=== PATIENT | female | born 1945 | race Caucasian/White ===

== ENCOUNTER → 2018-12-03 | Day surgery (SDC) | payer MEDICARE ==
[2018-11-25 11:03] LABS: BASOPHILS # (AUTO) 0.1 (0.0-0.1); BASOPHILS % 1.2 % (0.0-1.0); EOSINOPHILS # (AUTO) 0.2 (0.0-0.4); EOSINOPHILS % 3.7 % (0.0-6.0); HEMATOCRIT 41.2 % (34.2-44.1); HEMOGLOBIN 13.9 g/dL (12.0-16.0); LYMPHOCYTES # (AUTO) 1.5 (1.0-3.2); LYMPHOCYTES % 29.3 % (18.0-39.1); MEAN CORPUSCULAR HEMOGLOBIN 29.1 pg (28-32); MEAN CORPUSCULAR HGB CONC 33.7 g/dL (31-35); MEAN CORPUSCULAR VOLUME 86.2 fL (81-99); MONOCYTES # (AUTO) 0.5 (0.2-0.8); MONOCYTES % 9.2 % (4.4-11.3); NEUTROPHILS # (AUTO) 2.9 (2.1-6.9); NEUTROPHILS % 56.4 % (38.7-80.0); PLATELET COUNT 167 x10e3/uL (140-360); RED BLOOD COUNT 4.78 x10e6/uL (3.6-5.1); RED CELL DISTRIBUTION WIDTH 12.6 % (11.7-14.4)
[2018-11-25 11:19] LABS: ANION GAP 16.2 mmol/L (8-16); BLOOD UREA NITROGEN 11 mg/dL (7-26); BUN/CREATININE RATIO 14 (6-25); CALCIUM 9.6 mg/dL (8.4-10.2); CARBON DIOXIDE 24 mmol/L (22-29); CHLORIDE 99 mmol/L (98-107); EST GLOMERULAR FILTRATION RATE > 60 ML/MIN (60-); GLUCOSE 230 mg/dL (74-118); POTASSIUM 4.2 mmol/L (3.5-5.1); SODIUM 135 mmol/L (136-145)
--- NOTE | 2018-11-25 12:09 | Diagnostic Imaging Report ---
Exam: Chest radiograph Clinical History: Preoperative clearance Findings: The cardiomediastinal silhouette and lungs are normal. The regional skeleton and soft tissue are unremarkable. There is no evidence of pleural effusion or pneumothorax. Impression: No radiographic evidence of acute cardiopulmonary disease. Signed by: Dr. Michel Pierre MD on 11/25/2018 12:05 PM
[~2018-12-03] MED LIST: BUPIVACAINE HCL 0.5% 10ML MPF VIAL INJ ONE; CEFAZOLIN SOD 1 GM/NS 50ML 50 ML IV ONE; DEXAMETHASONE SOD PHOS INJ 4 MG/ML VIAL ONE; EFFEXOR XR 3737.5 MG PO; FENTANYL CITRATE/PF 100MCG/2 ML INJ ONE; LEVOTHYROXINE75 MCG PO; LIDOCAINE HCL 2% LOCAL INJ 5 ML SDV VIAL INJ ONE; LOSARTAN POTASS25 MG PO; MUPIROCIN 2% OINT 22 GM TUBE ONE; OMEPRAZOLE40 MG PO; ONDANSETRON HCL INJ 2MG/ML 2ML 2 MG/ML VIAL ONE; OZEMPIC SQ; PRAVASTATIN SOD20 MG PO; PROPOFOL IV EMULSION 10 MG/ML 20 ML VIAL ONE; SEVOFLURANE INHAL SOLN 250 ML PEN BTL ONE; TIZANIDINE HCL4 MG PO; TRAZODONE HCL50 MG PO; UNISOM SLEEP AI25 MG PO
--- OUTSIDE RECORDS SUMMARY | 2018-12-03 05:13 | XMS REPORT | Summary of Care ---
Author Organization Unknown Address Unknown Phone Unavailable Encounter HQ Encntr_timothy([facility]) [id number] Date(s): 05/13/14 - 05/13/14 [facility] Outpatient Imaging - [address] [address] [place] Discharge Disposition: Home Physician Attending: Bradley Lambert MD Reason for Visit 790.4 - ELEV TRANSAMINA Problem List No data available for this section Allergies, Adverse Reactions, Alerts No data available for this section Medications No data available for this section Medications Administered During Your Visit No data available for this section Immunizations No data available for this section
--- OUTSIDE RECORDS SUMMARY | 2018-12-03 05:13 | XMS REPORT | Summary of Care ---
Author Organization Unknown Address Unknown Phone Unavailable Encounter HQ Encntr_timothy([facility]) [id number] Date(s): 12/20/13 - 12/20/13 [facility] Outpatient Imaging - [address] [address] [place] Discharge Disposition: Home Physician Attending: Bradley Lambert MD Reason for Visit 789.00 - ABDMNAL PAIN UN Problem List No data available for this section Allergies, Adverse Reactions, Alerts No data available for this section Medications No data available for this section Medications Administered During Your Visit No data available for this section Immunizations No data available for this section
--- OUTSIDE RECORDS SUMMARY | 2018-12-03 05:13 | XMS REPORT | Continuity of Care Document ---
Author Author [facility] Organization [facility] Address Unknown Phone Unavailable Care Team Providers Care Stock Clipper Name Role Phone [employer] Information [employer] Unavailable Unavailable Problems Problem Status Onset Date Classification Date Reported Comments Source HEADACHE DIZINESS Active 05/19/2018 [facility] Encounter for screening mammogram for malignant neoplasm of breast 04/14/2018 10/27/2018 [facility] [place] Z12.31 - ENCNTR SCREEN MAMMOGRAM FOR MA Active 03/06/2018 [facility] [place] Age-related osteoporosis without current pathological fracture 10/27/2018 [facility] [place] Asymptomatic menopausal state 10/27/2018 [facility] [place] Other specified disorders of bone density and structure, unspecified site 10/27/2018 [facility] [place] Medications Medication Details Route Status Patient Instructions Ordering Provider Order Date Source Omnipaque 300 injectable solution 50 mL, Route: IV, Drug Form: SOLN, kg, ONCALL, GFR > 45 mL/min, Start date: 05/25/18 14:00:00 COLLAR STARCHER, Duration: 1 doses or timesNotes: (Same as:Omnipaque 300). WASTE: F/P - Black; E - Municipal Trash Bin Active 05/25/2018 [facility] Omnipaque 350 injectable solution 100 mL, Route: IV, kg, ONCALL, For CTA exam with GFR > 45 mL/min, Start date: 05/25/18 13:00:00 COLLAR STARCHER, Duration: 1 doses or times Inactive 05/25/2018 [facility] Allergies, Adverse Reactions, Alerts Substance Category Reaction Severity Reaction type Status Date Reported Comments Source No Known Medication Allergies Assertion Drug allergy [facility] [place] Immunizations No Data Provided for This Section Results Order Name Results Value Reference Range Date Interpretation Comments Source CHEM PANEL POC Creatinine 0.7 0.5 - 1.4 05/25/2018 [facility] CHEM PANEL eGFR 87 05/25/2018 Result Comment: The eGFR is calculated using the CKD-EPI formula. In most young, healthy individuals the eGFR will be >90 mL/min/1.73m2. The eGFR declines with age. An eGFR of 60-89 may be normal in some populations, particularly the elderly, for whom the CKD-EPI formula has not been extensively validated. Use of the eGFR is not recommended in the following populations:

Individuals with unstable creatinine concentrations, including patients and those with serious co-morbid conditions.

Patients with extremes in muscle mass or diet.

The data above are obtained from the National Kidney Disease Education Program (NKDEP) which additionally recommends that when the eGFR is used in patients with extremes of body mass index for purposes of drug dosing, the eGFR should be multiplied by the estimated BMI. [facility] Pathology Reports No Data Provided for This Section Diagnostic Reports Report Value Date Source Spine cervical wo contrast MRI Spine cervical wo contrast MRI 09/04/2018 14:53 CDT CLINICAL: M54.2 Cervicalgia - M54.2 Cervicalgia TECHNIQUE: Multiplanar multisequence imaging of the cervical spine was performed without administration of intravenous gadolinium. COMPARISON: No prior exam. FINDINGS: Multilevel disc desiccation is seen. C1-C2: No spinal stenosis or neural foraminal stenosis. C2-C3: 1.2 mm retrolisthesis with the ligamenta flava thickening and mild to moderate central canal stenosis and mild cord indentation. Moderate right facet arthrosis and moderate right foraminal stenosis. C3-C4: Moderate right facet arthrosis and mild right foraminal stenosis. Mild central canal stenosis due to ligamenta flava thickening. C4-C5: Significant right facet arthrosis and moderate right foraminal stenosis no central canal stenosis. C5-C6: Significant disc narrowing. 1 mm retrolisthesis is present with mild central canal stenosis. Severe left foraminal stenosis and moderate right foraminal stenosis. C6-C7: 1.2 mm retrolisthesis with mild central canal stenosis. Severe left foraminal stenosis and moderate right foraminal stenosis due to foraminal osteophytes. C7-T1: There is preservation of the disc height, with no bulging, herniation, spinal stenosis, or neural foraminal stenosis. The cervical cord signal is normal. IMPRESSION: 1. C2-C3, C5-C6, C6-C7 grade 1 retrolisthesis. 2. C2-C3 mild to moderate central canal stenosis. Other levels of mild central canal stenosis are present. 3. C2-C3, C4-C5 moderate right foraminal stenosis. C5-C6 and C6-C7 severe left foraminal stenosis and moderate right foraminal stenosis. 09/04/2018 ANGELINA Lee Brain w/wo contrast CT STUDY: Brain w/wo contrast CT 05/25/2018 11:40 COLLAR STARCHER Ordering Physician: Anahi Peraza MD Patient Name: MONTY BINGHAM MR: [id number] : 1945; Age: 72 years y/o Female Clinical Indication: - headache and dizziness Comparison: None TECHNIQUE: Multiple contiguous precontrast and postcontrast CT images were obtained through the head. Coronal and sagittal reformatted images were prepared. CT imaging performed at this location utilizes radiation dose optimization techniques which include one or more of the following: -Automated exposure control -Adjustment of the mA and/or kV according to patient size -Use of iterative reconstruction technique IV CONTRAST: 100 mL Omnipaque DLP: 1306 mGy-cm FINDINGS: BRAIN PARENCHYMA: 1. Mild diffuse age-appropriate atrophy is present associated with mild nonspecific periventricular low attenuation most consistent with old microangiopathic ischemic change. 2. No evidence of acute intracranial hemorrhage, mass lesion, mass effect, midline shift, or extra-axial fluid collection. 3. Postcontrast images demonstrate no abnormal enhancement. VENTRICLES: The lateral ventricles, third ventricle, fourth ventricle, and basilar cisterns are appropriate for degree of atrophy present. PARANASAL SINUSES: Mild mucoperiosteal thickening in the sphenoid sinus associated with small mucous retention cysts or polyps. The visualized portions of the remaining paranasal sinuses are clear. MASTOIDS: Clear. ORBITS: The visualized portions of the orbits are normal. SOFT TISSUES: No significant abnormality. SKULL: No acute fracture or suspicious osseous lesion. IMPRESSION: 1. Mild diffuse age-appropriate atrophy is present associated with mild nonspecific periventricular low attenuation most consistent with old microangiopathic ischemic change. 2. No acute intracranial abnormality or abnormal enhancement. 3. Mild chronic sinusitis. SL: [id number] 05/25/2018 [facility] Bone Density DXA [employer] MA BONE DENSITY ASSESSMENT: 04/08/2018 CLINICAL DATA: Post menopausal and clinical risk for osteoporosis. Age-Related Osteoporosis Without Current Pathological Fracture/M81.0 RISK FACTORS: race. FINDINGS: Bone density evaluation was performed 04/08/2018 on the left ultra distal radius and ulna using a Hologic unit. The BMD average for the exam is 0.624 g/cm2. The T-score is -1.20 and the Z-score is 1.00. This matches the World Health Organization's criteria for osteopenia and places the patient at a medium risk for fracture. An additional bone density evaluation was performed 04/08/2018 on the right femur neck using a Hologic unit. The BMD average for the exam is 0.852 g/cm2. The Z-score is 1.90. Complete risk assessment of this region was not determined. An additional bone density evaluation was performed 04/08/2018 on the left femur neck using a Hologic unit. The BMD average for the exam is 0.789 g/cm2. The T- score is -0.50 and the Z-score is 1.30. This matches the World Health Organization's criteria for normal bone density and places the patient within normal limits of fracture risk. An additional bone density evaluation was performed 04/08/2018 on the right hip using a Hologic unit. The BMD average for the exam is 0.971 g/cm2. The T-score is 0.20 and the Z-score is 1.80. This matches the World Health Organization's criteria for normal bone density and places the patient within normal limits of fracture risk. An additional bone density evaluation was performed 04/08/2018 on the left hip using a Hologic unit. The BMD average for the exam is 0.938 g/cm2. The Z-score is 1.50. Complete risk assessment of this region was not determined. An additional bone density evaluation was performed 04/08/2018 on the AP L1-L3 region of spine using a Hologic unit. The BMD average for the exam is 0.982 g/cm2. The T-score is -0.30 and the Z-score is 1.80. This matches the World Health Organization's criteria for normal bone density and places the patient within normal limits of fracture risk. IMPRESSION: OSTEOPENIA Patient is at medium risk for fracture. Patient consult w/primary care provider is recommended. This exam was interpreted at [id number] for IMELDA Haddad 15. Renetta Shearer M.D., ms/krishan:04/08/2018 15:36:11 Sweet Dough Mixer(s): Melanie Arellano RT(R)(M), [facility] 04/08/2018 ANGELINA Lee Breast Mammo Scrn ANNE incl CAD MA BILATERAL DIGITAL SCREENING MAMMOGRAM WITH CAD: 04/08/2018 CLINICAL: Encounter For Screening Mammogram For Malignant Neoplasm Of Breast/Z12.31. Current study was evaluated with a Computer Aided Detection (CAD) system. COMPARISON:Comparison is made to exams dated: 05/13/2014 mammogram - [facility] and [facility] TECHNIQUE: Mammographic views were obtained using digital acquisition. Current study was also evaluated with a Computer Aided Detection (CAD) system. FINDINGS: There are scattered fibroglandular densities in both breasts. There are benign calcifications in both breasts. No significant masses, calcifications, or other findings are seen in either breast. There has been no significant interval change. IMPRESSION: BENIGN RECOMMENDATION:There is no mammographic evidence of malignancy. A 1 year screening mammogram is recommended.(04/09/2019) This exam was interpreted at [id number] [place], [place] 15. Professional services are provided by the [facility] Diagnostic [facility]. Renetta Shearer M.D. ms/penrad:04/09/2018 08:18:52 Sweet Dough Mixer(s): Araceli Peraza RT(R)(M), [facility] letter sent: BI-RADS 1/2 Mammogram BI-RADS: 2 Benign 04/08/2018 ANGELINA Lee Consultation Notes No Data Provided for This Section Discharge Summaries No Data Provided for This Section History and Physicals No Data Provided for This Section Vital Signs No Data Provided for This Section Encounters Location Location Details Encounter Type Encounter Number Reason For Visit Attending Provider ADM Date DC Date Status Source [facility] Outpatient Imaging - [place] [facility] [id number] Bradley Tamez Jr 12/20/2013 12/21/2013 [facility] [place] [facility] Outpatient Imaging - [place] [facility] [id number] Bradley Tamez Jr 05/13/2014 05/14/2014 [facility] [place] [facility] Outpatient Imaging [place] [facility] [id number] Santiago Valenciaone 04/08/2018 04/09/2018 [facility] [place] [facility] [id number] Anahi Peraza 05/25/2018 05/26/2018 [facility] Outpatient Imaging - [place] [facility] [id number] Jackie Swift 09/04/2018 09/05/2018 [facility] [place] Procedures No Data Provided for This Section Assessment and Plan No Data Provided for This Section Plan of Care No Data Provided for This Section Social History Social History Date Source No data available for this section 05/26/2018 [facility] No data available for this section 04/09/2018 [facility] [place] Family History No Data Provided for This Section Advance Directives No Data Provided for This Section Functional Status No Data Provided for This Section
--- OUTSIDE RECORDS SUMMARY | 2018-12-03 05:14 | XMS REPORT | Summary of Care ---
Author Author [facility] - [place] Organization [facility] [place] Address Unknown Phone Unavailable Encounter HQ Encntr_alias(FIN) [id number] Date(s): 09/04/18 - 09/04/18 [facility] Out[facility] - [place] [address] [facility] [address] [phone] Discharge Disposition: Home or Self Care Attending Physician: Jackie Swift MD Referring Physician: Jackie Swift MD Vital Signs No data available for this section Problem List No data available for this section Allergies, Adverse Reactions, Alerts No Known Medication Allergies Medications No data available for this section Results No data available for this section Immunizations No data available for this section Procedures No data available for this section Social History No data available for this section Assessment and Plan No data available for this section
--- OUTSIDE RECORDS SUMMARY | 2018-12-03 05:14 | XMS REPORT | Summary of Care ---
Author Author [facility] Organization [facility] Address Unknown Phone Unavailable Encounter SCARLETT Koch(NASIMA) [id number] Date(s): 05/25/18 - 05/25/18 [facility] [address] [place] [address]- Discharge Disposition: Home or Self Care Attending Physician: Anahi Peraza MD Referring Physician: Anahi Peraza MD Vital Signs No data available for this section Problem List No data available for this section Allergies, Adverse Reactions, Alerts Substance Reaction Severity Status NKDA Active Medications Omnipaque 300 injectable solution 50 mL, Route: IV, Drug Form: SOLN, kg, ONCALL, GFR > 45 mL/min, Start date: 05/25/18 14:00:00 FLIGHT TEST MECHANIC, Duration: 1 doses or times Notes: (Same as:Omnipaque 300).WASTE: F/P - Black; E - Municipal Trash Bin Start Date: 05/25/18 Status: Ordered Omnipaque 350 injectable solution 100 mL, Route: IV, kg, ONCALL, For CTA exam with GFR > 45 mL/min, Start date: 05/25/18 13:00:00 FLIGHT TEST MECHANIC, Duration: 1 doses or times Start Date: 05/25/18 Stop Date: 05/25/18 Status: Discontinued Results CHEM PANEL Most recent to 1 oldest [Reference Range]: eGFR 87 mL/min/1.73m2 1 *NA* (05/25/18 12:01 PM) POC Creatinine 0.7 mg/dL [0.5-1.4 mg/dL] (05/25/18 12:01 PM) 1Result Comment: The eGFR is calculated using the [...] from the National Kidney Disease Education Program ( NKDEP) which additionally recommends that when the eGFR is used in patients with extremes of body mass index for purposes of drug dosing, the eGFR should be mul tiplied by the estimated BMI. Immunizations No data available for this section Procedures No data available for this section Social History No data available for this section Assessment and Plan No data available for this section
--- OUTSIDE RECORDS SUMMARY | 2018-12-03 05:14 | XMS REPORT | Summary of Care ---
Author Author [facility] - [place] Organization [facility] [place] Address Unknown Phone Unavailable Encounter HQ Efrenntr_timothy(FIN) [id number] Date(s): 04/08/18 - 04/08/18 [facility] Outpatient Imaging - [place] [address] [place] [address] [phone] Encounter Diagnosis Encounter for screening mammogram for malignant neoplasm of breast (Final) - 04/13/18 Age-related osteoporosis without current pathological fracture (Final) - Asymptomatic menopausal state (Final) - Other specified disorders of bone density and structure, unspecified site (Final) - Discharge Disposition: Home or Self Care Attending Physician: Santiago Craig MD Referring Physician: Santiago Craig MD Vital Signs No data available for [...]
--- OUTSIDE RECORDS SUMMARY | 2018-12-03 05:14 | XMS REPORT ---
Author Author [facility] Address Unknown Phone Unavailable Care Team Providers Care Hand Glass Cutter Name Role Phone DAVE HAIR Unavailable Unavailable MIKA COYNE Unavailable Unavailable Problems This patient has no known problems. Allergies, Adverse Reactions, Alerts This patient has no known allergies or adverse reactions. Medications This patient has no known medications. Results Test Description Test Time Test Comments Text Results Atomic Results Result Comments CHEST 2 VIEWS 2018-11-25 12:04:00 [place] [address] Patient Name: MONTY BINGHAM MR #: [id number] : 1945 Age/Sex: 72/F Req #: [id number] Adm Physician: Ordered by: DAVE HAIR MD Report #: [id number] Location: OR Room/Bed: Procedure: [id number] DX/CHEST 2 VIEWS Exam Date: 11/25/18 Exam Time: 1105 REPORT STATUS: Signed Exam: Chest radiograph Clinical History: Preoperative clearance Findings: The cardiomediastinal silhouette and lungs are normal. The regional skeleton and soft tissue are unremarkable. There is no evidence of pleural effusion or pneumothorax. Impression: No radiographic evidence of acute cardiopulmonary disease. Signed by: Dr. Michel Pierre MD on 11/25/2018 12:05 PM Dictated By: GUERLINE PIERRE MD 1205 Transcribed By: REED on 11/25/18 120 COPY TO: DAVE HAIR MD CHEST 2 VIEWS [facility] [address] [place] [address] Patient Name: MONTY BINGHAM MR #: [id number] : 1945 Age/Sex: 71/F Req #: [id number] Adm Physician: Ordered by: MIKA COYNE MD Report #: [id number] Location: [facility] Room/Bed: Procedure: [id number] DX/CHEST 2 VIEWS Exam Date: 02/27/17 Exam Time: 1320 REPORT STATUS: Signed PROCEDURE: Frontal and lateral views of the chest. COMPARISON: [facility], , CHEST 2 VIEWS - [place], 01/01/2016, 12:17. INDICATIONS: COUGH X 4-6 WEEKS FINDINGS: Lines/tubes: None. Lungs: The lungs are well inflated and clear. There is no evidence of pneumonia or pulmonary edema. Pleura: There is no pleural effusion or pneumothorax. Heart and mediastinum: The heart and the mediastinum are normal. Bones: No acute bony abnormality. Stable pectus excavatum IMPRESSION: 1. No acute cardiopulmonary abnormalities. Catrachito Pope M.D. Dictated by: Catrachito Pope M.D. on 02/27/2017 at 13:45 Electronically approved by: Catrachito Pope M.D. on 02/27/2017 at 13:45 Dictated By: CATRACHITO POPE MD 1345 Transcribed By: DYLAN on 02/27/17 1345 COPY TO: MIKA COYNE MD
[2018-12-03 08:10] VITALS: BP 125/95
--- NOTE | 2018-12-03 18:43 | Operative Report ---
DATE OF PROCEDURE: 12/03/2018 SURGEON: Talha Kenyon MD PREOPERATIVE DIAGNOSIS: Left carpal tunnel syndrome. POSTOPERATIVE DIAGNOSES: 1. Left carpal tunnel syndrome. 2. Flexor tenosynovitis, left wrist. PROCEDURE: 1. Left open carpal tunnel release. 2. Flexor tenosynovectomy, left wrist. ANESTHESIA: General. HISTORY: The patient is a 72-year-old with EMG-proven left carpal tunnel syndrome. Risks, benefits and alternatives of treatment were discussed with the patient. The patient is prepared to undergo the procedure as outlined. DESCRIPTION OF PROCEDURE: The patient was brought to the operating theater. After the induction of adequate general inhalation anesthesia, the patient was prepped and draped in the supine position. A time out was performed by the entire operating room team. A 2.5 cm incision was marked out in the intrathenar space. The left upper extremity was exsanguinated, and a tourniquet was inflated to a pressure of 250 mmHg. The incision was made through the skin and subcutaneous tissues and all venous tributaries were controlled with bipolar cautery. The incision was deepened through the palmar fascia until the transverse carpal ligament was identified. The ligament was sharply sectioned, taking care to protect and preserve the median nerve underlying it. After the complete width of the ligament had been transected, the distal volar forearm fascia was divided under direct view. Proliferative flexor tenosynovium was noticed to encompass the median nerve and this was radically excised. After performing this maneuver, the nerve was noted to lie adequately decompressed. The wound was copiously irrigated with bacteriostatic saline, closed with 5-0 nylon in an interrupted horizontal mattress fashion. A Marcaine field block was performed at the operative site. Tourniquet was deflated. All of the fingers pinked up nicely and a sterile bulking conforming bandage was applied to the hand and the wrist. A fiberglass splint was fashioned to maintain the wrist in a modest amount of extension. This was held in place with a loosely wrapped Terry wrap. The patient tolerated the procedure well and was brought to the recovery room in satisfactory condition and discharged with a postoperative instruction sheet as well as a followup appointment. Talha Kenyon MD ER/MODL /[id number]
== END | disposition home or self-care (01) ==
LOC: OR 05:00
PROVIDERS: ATTEND Plastic Surgery
DX: G56.02 Carpal tunnel syndrome, left upper limb (principal); M65.832 Other synovitis and tenosynovitis, left forearm; I10 Essential (primary) hypertension; E11.9 Type 2 diabetes mellitus without complications; Z88.1 Allergy status to other antibiotic agents; Z01.810 Encounter for preprocedural cardiovascular examination; Z01.812 Encounter for preprocedural laboratory examination; Z01.818 Encounter for other preprocedural examination; Z79.84 Long term (current) use of oral hypoglycemic drugs
CPT/HCPCS: 25115; 36415 ×2; 71046; 80048; 82948; 85025; 93005; J0690; J1100; J2001; J2405; J2704; J3010

== ENCOUNTER → 2024-04-29 | Outpatient (REF) | payer MEDICARE ==
[~2024-04-29] MED LIST changes: -BUPIVACAINE HCL 0.5% 10ML MPF VIAL INJ ONE; -CEFAZOLIN SOD 1 GM/NS 50ML 50 ML IV ONE; -DEXAMETHASONE SOD PHOS INJ 4 MG/ML VIAL ONE; -FENTANYL CITRATE/PF 100MCG/2 ML INJ ONE; -LIDOCAINE HCL 2% LOCAL INJ 5 ML SDV VIAL INJ ONE; -MUPIROCIN 2% OINT 22 GM TUBE ONE; -ONDANSETRON HCL INJ 2MG/ML 2ML 2 MG/ML VIAL ONE; -PROPOFOL IV EMULSION 10 MG/ML 20 ML VIAL ONE; -SEVOFLURANE INHAL SOLN 250 ML PEN BTL ONE
== END ==
LOC: US 13:12
PROVIDERS: ATTEND Nurse Practitioner Family
DX: E03.9 Hypothyroidism, unspecified (principal)
CPT/HCPCS: 76536